=== PATIENT | male | born 1960 | race Caucasian/White ===

== ENCOUNTER 2025-02-23 10:51 | Emergency (ER) | payer MEDICAID ==
[~2025-02-23] VITALS: Ht 175.3 cm; Wt 97.5 kg
[2025-02-23 11:05] VITALS: O2SAT 97
[2025-02-23 12:27] LABS: BASOPHILS % 0.8 % (0.0-2.0); EOSINOPHILS % 2.3 % (0.0-5.0); HEMATOCRIT. 44.8 % (42.0-52.0); HEMOGLOBIN. 15.6 g/dL (14.0-18.0); LYMPHOCYTES % 38.5 % (20.0-50.0); MEAN PLATELET VOLUME 9.8 fl (7.4-10.4); MONOCYTES % 10.1 % (2.0-8.0); NEUTROPHILS % 48.3 % (40.0-76.0); PLATELET 186 x1000/uL (130-400); RED BLOOD CELL COUNT 4.64 mill/uL (4.7-6.1); RED CELL DISTRIBUTION WIDTH 15.0 % (11.6-14.6)
[2025-02-23 12:52] LABS: CREATININE 1.0 mg/dL (0.6-1.3); TROPONIN I HIGH SENSITIVITY < 4 ng/L (3.0-53)
[2025-02-23 12:53] LABS: UREA NITROGEN BLOOD 14 mg/dL (9-23)
[2025-02-23 12:54] LABS: ASPARTATE AMINOTRANSFERASE 23 IU/L (<34)
[2025-02-23 12:55] LABS: BILIRUBIN DIRECT 0.2 mg/dL (<=3.0); BILIRUBIN TOTAL 1.1 mg/dL (0.1-1.0); PROTEIN TOTAL 7.7 g/dL (6.0-8.3)
[2025-02-23] MEDS ORDERED: DOCU-138 MT (13:41)
[2025-02-23] MEDS ORDERED: IBUP-2029 MT (13:41)
[2025-02-23 14:03] VITALS: BP 161/98; PULSE 65; RESP 17; TEMP 36.7; O2SAT 97
== END 2025-02-23 14:05 | disposition home or self-care (01) ==
LOC: ER 10:51
DX: K40.90 Unilateral inguinal hernia, without obstruction or gangrene, not specified as recurrent (principal); I10 Essential (primary) hypertension; Z87.19 Personal history of other diseases of the digestive system; Z96.649 Presence of unspecified artificial hip joint; Z79.899 Other long term (current) drug therapy
CPT/HCPCS: 36415; 74176; 80048; 80076; 84484; 85025; 93005; 99284

== ENCOUNTER 2025-05-05 10:36 | Emergency (ER) | payer MEDICAID ==
[~2025-05-05] VITALS: Ht 175.3 cm; Wt 100.0 kg
[~2025-05-05 10:36] MED LIST: DOCU-138 MT; IBUP-1455 MT
[2025-05-05 10:49] VITALS: O2SAT 97
[2025-05-05] MEDS ORDERED: LIDO-53 TP (11:53)
[2025-05-05] MEDS ORDERED: NAPR-681 MT (11:53)
[2025-05-05 12:08] VITALS: BP 139/90; PULSE 72; RESP 15; TEMP 37.1; O2SAT 97
== END 2025-05-05 12:09 | disposition home or self-care (01) ==
LOC: ER 10:36
DX: M25.511 Pain in right shoulder (principal); I10 Essential (primary) hypertension; Z79.1 Long term (current) use of non-steroidal anti-inflammatories (NSAID); Z96.649 Presence of unspecified artificial hip joint
CPT/HCPCS: 73030; 99283

== ENCOUNTER 2025-05-18 11:59 | Emergency (ER) | payer MEDICAID ==
[~2025-05-18] VITALS: Ht 170.2 cm; Wt 87.0 kg
[~2025-05-18 11:59] MED LIST changes: +LIDO-53 TP; +NAPR-681 MT
[2025-05-18 12:12] VITALS: BP 166/100; TEMP 36.8; O2SAT 98
[2025-05-18 12:17] VITALS: PULSE 94; RESP 18; O2SAT 99
== END 2025-05-18 16:42 | disposition home or self-care (01) ==
LOC: ER 11:59
DX: M25.511 Pain in right shoulder (principal); Z79.1 Long term (current) use of non-steroidal anti-inflammatories (NSAID); Z79.899 Other long term (current) drug therapy
CPT/HCPCS: 73030; 99283